=== PATIENT | male | born 1965 | race Caucasian/White ===

== ENCOUNTER 2016-05-02 13:12 | Inpatient (IN) | payer OTHER ==
[2016-05-02 14:11] VITALS: BMI 23.1
--- NOTE | 2016-05-02 15:04 | HP ---
Admission ROS [facility] Chief Complaint: i am here for rehab from heroin and xanax,last detox [facility] discharge today,asthma on albuterol inhaler nicotine dependence longest period sobriety 14 years Allergies/Adverse Reactions: Allergies Allergy/AdvReac Type Severity Reaction Status Date / Time aspirin Allergy Severe Difficulty Verified 01/13/15 16:53 Breathing macadamia nut oil Allergy Severe Verified 05/02/16 14:48 Penicillins Allergy Severe Difficulty Verified 01/13/15 16:53 Breathing History of Present Illness: this 50 yeras old male with heroin and xanax dependence for rehab as protocol Exam Limitations: No Limitations - Ebola screening Have you traveled outside of the country in the last 21 days: No Have you been sick,other than usual withdrawal symptoms: No Do you have a fever: No - Review of Systems Constitutional: No Symptoms Reported EENT: reports: No Symptoms Reported Respiratory: reports: No Symptoms reported, Other (asthma) Cardiac: reports: No Symptoms Reported GI: reports: No Symptoms Reported : reports: No Symptoms Reported Integumentary: reports: No Symptoms Reported Neuro: reports: No Symptoms reported Endocrine: reports: No Symptoms Reported Hematology: reports: No Symptoms Reported Psychiatric: reports: No Sypmtoms Reported Other Systems: Reviewed and Negative Patient History - Patient Medical History Hx Anemia: No Hx Asthma: Yes (Pt is on MDI for asthma.) Hx Chronic Obstructive Pulmonary Disease (COPD): Yes Hx Cancer: No Hx Cardiac Disorders: Yes (cardiac cath in 2006, 08/2015) Hx Congestive Heart Failure: No Hx Hypertension: Yes Hx Hypercholesterolemia: Yes Hx Pacemaker: No HX Cerebrovascular Accident: No Hx Seizures: Yes (blackouts ) Hx Dementia: No Hx Diabetes: No Hx Gastrointestinal Disorders: No Hx Liver Disease: No Hx Genitourinary Disorders: No Hx Sexually Transmitted Disorders: No Hx Renal Disease (ESRD): No Hx Thyroid Disease: No Hx Human Immunodeficiency Virus (HIV): No (2016 last negative) Hx Hepatitis C: Yes (not treated) Hx Depression: Yes (no med) Hx Suicide Attempt: No Hx Bipolar Disorder: No Hx Schizophrenia: No Other Medical History: no suicidal,no homicidal - Patient Surgical History Past Surgical History: Yes Hx Neurologic Surgery: No Hx Cataract Extraction: No Hx Cardiac Surgery: No Hx Lung Surgery: Yes (LEFT LUNG "REMOVED SOMETHING" empyema in 2001) Hx Breast Surgery: No Hx Breast Biopsy: No Hx Abdominal Surgery: No Hx Appendectomy: No Hx Cholecystectomy: No Hx Genitourinary Surgery: No Hx Orthopedic Surgery: Yes (R shoulder in 1992 xs R ankle sx 2009) Anesthesia Reaction: No - PPD History Previous Implant?: Yes Documented Results: Positive w/o proof PPD to be Administered?: No - Smoking Cessation Smoking history: Current every day smoker Have you smoked in the past 12 months: Yes Aproximately how many cigarettes per day: 20 Cigars Per Day: 0 Hx Chewing Tobacco Use: No Initiated information on smoking cessation: Yes 'Breaking Loose' booklet given: 05/02/16 - Substances Abused Alprazolam (Xanax) Route: Oral Frequency: Daily Amount used: 10 MG Age of first use: 28 Date of Last Use: 04/23/16 Alcohol Route: Oral Frequency: Daily Amount used: 1 PINT LIQUOR Age of first use: 16 Date of Last Use: 04/20/16 MORPHINE Route: Oral Frequency: Daily Amount used: 10 TABS Age of first use: 50 Date of Last Use: 04/23/16 Family Disease History - Family Disease History Family Disease History: Diabetes: Mother, Heart Disease: Father (pacemaker ), Brother (pacemaker ) Admission Physical Exam BHS - Vital Signs Vital Signs: Vital Signs - 24 hr 05/02/16 14:08 Temperature 98.5 F Pulse Rate 98 H Respiratory 20 Rate Blood Pressure 130/71 - Physical General Appearance: Yes: Within Normal Limits HEENTM: Yes: Within Normal Limits, TERRY, Pharynx Normal Respiratory: Yes: Lungs Clear, Surgical Scar (s/p left thoracotomy) Neck: Yes: Within Normal Limits, Supple, Trachea in good position Breast: Yes: Within Normal Limits Cardiology: Yes: Within Normal Limits, Regular Rhythm, Regular Rate, S1, S2 Abdominal: Yes: Within Normal Limits, Normal Bowel Sounds, Non Tender, Flat, Soft Genitourinary: Yes: Within Normal Limits Back: Yes: Within Normal Limits Musculoskeletal: Yes: Back pain, Muscle Pain Extremities: Yes: Within Normal Limits, Normal Range of Motion Neurological: Yes: computer engineering technologist II-XII NML intact, Fully Oriented, Alert, Motor Strength 5/5 Integumentary: Yes: Within Normal Limits - Diagnostic (1) Opioid dependence Current Visit: Yes Status: Acute (2) Uncomplicated sedative, hypnotic or anxiolytic withdrawal Current Visit: Yes Status: Acute (3) Alcohol dependence Current Visit: Yes Status: Acute (4) CAD (coronary artery disease) Current Visit: No Status: Chronic (5) Hep C w/o coma, chronic Current Visit: No Status: Chronic (6) Nicotine dependence Current Visit: No Status: Chronic Qualifiers: Nicotine product type: cigarettes Substance use status: uncomplicated Qualified Code(s): F17.210 - Nicotine dependence, cigarettes, uncomplicated Comment: RISKS OF CIGARETTE SMOKING RELATED HEALTH JESSIE PROVIDED (7) Strabismic amblyopia of right eye Current Visit: No Status: Chronic (8) Empyema lung Current Visit: Yes Status: Acute (9) Dislocation of right shoulder joint Current Visit: Yes Status: Acute Cleared for Admission S - Detox or Rehab Claeared for Rehab Admission: Yes [facility] Breath Alcohol Content Breath Alcohol Content: 0 Urine Drug Screen - Results Drug Screen Negative: No Urine Drug Screen Results: OPI-Opiates, BZO-Benzodiazepines, TCA-Tricyclic Antidepress
[2016-05-02] MEDS ORDERED: P-EPHED 60MG/TRIPROLIDI 2.5MG TABLET PO PRN (15:22)
[2016-05-02] MEDS ORDERED: MAGNESIUM HYDROX 2400MG/30ML ORAL SUSPENSION 30 ML CUP PO PRN (15:22)
[2016-05-02] MEDS ORDERED: MAG HYDROX/AL HYDROX/SIMETH 30 ML UNIT-DOSE CUP PO PRN (15:22)
[2016-05-02] MEDS ORDERED: MENTHOL/PHENOL 1 EACH UD MM PRN (15:22)
[2016-05-02] MEDS ORDERED: guaiFENesin/D-METHORPHAN HB 10 ML UNIT-DOSE CUPS PO PRN (15:22)
[2016-05-02] MEDS ORDERED: IBUPROFEN 400 MG TABLET (FP) PO PRN (15:22)
[2016-05-02] MEDS ORDERED: MAGNESIUM CITRATE 300 ML BOTTLE PO PRN (15:22)
[2016-05-02] MEDS ORDERED: LOPERAMIDE HCL 2 MG CAPSULE PO PRN (15:22)
[2016-05-02] MEDS ORDERED: ACETAMINOPHEN 325 MG TABLET (FP) PO PRN (15:22)
[2016-05-02] MEDS ORDERED: ALBUTEROL SO4 6.7 GM HFA INHALER IH PRN (15:57)
[2016-05-02] MEDS: hydrOXYzine PAMOATE 50 MG CAPSULE (FP) PO PRN (19:11)
[2016-05-02] MEDS: NICOTINE 21 MG/24 HOURS TOPICAL PATCH TD SCH (19:12)
[2016-05-02] MEDS: NICOTINE POLACRILEX 2 MG GUM BC PRN (19:13)
[2016-05-02 20:38] LABS: URINE APPEARANCE CLEAR; URINE BILIRUBIN NEGATIVE (NEGATIVE); URINE BLOOD NEGATIVE (NEGATIVE); URINE COLOR YELLOW; URINE GLUCOSE (UA) NEGATIVE (NEGATIVE); URINE KETONE NEGATIVE (NEGATIVE); URINE LEUK ESTERASE NEGATIVE (NEGATIVE); URINE NITRITE NEGATIVE (NEGATIVE); URINE PROTEIN NEGATIVE (NEGATIVE); URINE UROBILINOGEN 2.0 E.U/dl E.U./dl (0.2-1.0)
[2016-05-02] MEDS: CYCLOBENZAPRINE HCL 10 MG TABLET (FP) PO PRN (21:10)
[2016-05-02] MEDS: cloNIDine HCL 0.1 MG TABLET PO SCH (21:10)
[2016-05-02] MEDS: diphenhydrAMINE HCL 50 MG CAPSULE PO PRN (21:10)
[2016-05-02] MEDS: THIAMINE HCL 100 MG TABLET (FP) PO SCH (21:10)
--- NOTE | 2016-05-03 08:21 | HP ---
Psychiatrist Admission - Data Date of interview: 05/03/16 Admission source: [facility]( discharged today from detox) Identifying data: This is the first [facility] admission for this 50 years old male, father of 3 children, unemployed, homeless seeking rehab treatment for morphine and xanax Medical History: Significant for history of Asthma, CAD, HTN, Hyperlipidemia Benzodiazepine-related seizure, Hep C, Orthosurgery for right shoulder dislocation in 1992 & fracture right ankle in 2009 and surgery for partial removal for of left lung due to empyema in 2001 Physical/Sexual Abuse/Trauma History: Denies history of emotional, physical and sexual abuse as well as DV relationship Additional Comment: Reports history of one previous misdemeanor arrest. Denies being on probation at present Vital Signs: Vital Signs - 24 hr 05/02/16 05/02/16 05/03/16 14:08 20:26 03:30 Temperature 98.5 F Pulse Rate 98 H 78 Respiratory 20 18 Rate Blood Pressure 130/71 111/74 05/03/16 06:46 Temperature 97.6 F Pulse Rate 78 Respiratory 18 Rate Blood Pressure 94/56 Allergies/Adverse Reactions: Allergies Allergy/AdvReac Type Severity Reaction Status Date / Time aspirin Allergy Severe Difficulty Verified 01/13/15 16:53 Breathing macadamia nut oil Allergy Severe Verified 05/02/16 14:48 Penicillins Allergy Severe Difficulty Verified 01/13/15 16:53 Breathing Date of last physical exam: 05/02/16 Concur with the findings of this exam: Yes - Substance Abuse/Tx History Hx Alcohol Use: No Hx Substance Use: Yes Substance Use Type: Opiates (Started using morphine at age 50, consumes 10 tabs daily. Last used on 04/23/16), Tranquilizers (Started using xanax at age 28, consumes 10 mg daily. Last used on 04/23/16) Hx Substance Use Treatment: Yes (6 previous inpt detox including one @ [facility]. First inpt rehab) - Admission Criteria Previous failed treatment: No Poor recovery environment: Yes Comorbidities: Yes Lacks judgement: Yes Mental Status Exam - Mental Status Exam Alert and Oriented to: Time, Place, Person Cognitive Function: Fair Patient Appearance: Well Groomed Mood: Depressed, Anxious Affect: Appropriate Patient Behavior: Cooperative Speech Pattern: Clear Voice Loudness: Normal Thought Process: Intact Thought Disorder: Not Present Hallucinations: Denies Suicidal Ideation: Denies Homicidal Ideation: Denies Insight/Judgement: Fair Sleep: Poorly Appetite: Fair Muscle strength/Tone: Normal Gait/Station: Normal Psychiatric Findings - Problem List ([place] 1, 2,3) (1) Opioid dependence Current Visit: Yes Status: Acute (2) Sedative hypnotic or anxiolytic dependence Current Visit: Yes Status: Acute (3) Nicotine dependence Current Visit: No Status: Chronic Qualifiers: Nicotine product type: cigarettes Substance use status: uncomplicated Qualified Code(s): F17.210 - Nicotine dependence, cigarettes, uncomplicated Comment: RISKS OF CIGARETTE SMOKING RELATED HEALTH JESSIE PROVIDED (4) Major depressive disorder, single episode in full remission Current Visit: Yes Status: Acute (5) Dislocation of right shoulder joint Current Visit: Yes Status: Acute (6) Empyema lung Current Visit: Yes Status: Acute (7) Asthma Current Visit: No Status: Chronic Qualifiers: Asthma severity: mild persistent Asthma complication type: with status asthmaticus Qualified Code(s): J45.32 - Mild persistent asthma with status asthmaticus (8) CAD (coronary artery disease) Current Visit: No Status: Chronic (9) COPD (chronic obstructive pulmonary disease) Current Visit: No Status: Chronic Qualifiers: COPD type: emphysema Emphysema type: panlobular Qualified Code(s ): J43.1 - Panlobular emphysema (10) Hep C w/o coma, chronic Current Visit: No Status: Chronic (11) Hypertension Current Visit: No Status: Chronic Qualifiers: Hypertension type: essential hypertension Qualified Code(s): I10 - Essential (primary) hypertension Comment: BP 107/69 UPON ADMISSION, LAST DOSE METOPROLOL 50 MG "FEW DAYS AGO", HOLD METOPROLOL, MONITOR BP (12) Strabismic amblyopia of right eye Current Visit: No Status: Chronic - Initial Treatment Plan Initial Treatment Plan: Monitor progress
[2016-05-03] MEDS: NICOTINE 21 MG/24 HOURS TOPICAL PATCH TD SCH (09:46)
[2016-05-03] MEDS: NICOTINE POLACRILEX 2 MG GUM BC PRN (09:46)
[2016-05-03] MEDS: cloNIDine HCL 0.1 MG TABLET PO SCH (09:46)
[2016-05-03] MEDS: CYCLOBENZAPRINE HCL 10 MG TABLET (FP) PO PRN ×2 (09:47→21:31)
[2016-05-03 09:58] LABS: MCH 27.2 pg (25.7-33.7); MCHC 31.7 g/dl (32.0-35.9); MEAN CELL VOLUME 85.8 fl (80-96); MEAN PLT VOLUME 9.9 fl (7.5-11.1); PLATELET COUNT 270 K/MM3 (134-434); RDW 14.5 % (11.9-15.9); WHITE BLOOD COUNT 6.3 K/mm3 (4.0-10.0)
[2016-05-03] MEDS ORDERED: PRENATAL VITAMINS W/ FOLIC ACID TABLET (FP) PO SCH (10:00)
[2016-05-03 11:20] LABS: ALBUMIN 4.4 g/dl (3.4-5.0); ALK PHOS 140 U/L (45-117); ANION GAP 10 (8-16); BILIRUBIN,TOTAL 0.4 mg/dL (0.2-1.0); CALCIUM 9.6 mg/dL (8.5-10.1); CO2 27 mmol/L (21-32); GLUCOSE,RANDOM 130 mg/dL (74-106); SGOT/AST 47 U/L (15-37); SGPT/ALT 66 U/L (12-78); TOT PROT 8.8 g/dl (6.4-8.2)
[2016-05-03 11:53] LABS: HIV 1 & 2 AB NEGATIVE; HIV 1 AGp24 NEGATIVE
[2016-05-03] MEDS: hydrOXYzine PAMOATE 50 MG CAPSULE (FP) PO PRN (14:46)
--- NOTE | 2016-05-03 17:17 | EKG ---
Test Reason : Blood Pressure : / mmHG Vent. Rate : 059 BPM Atrial Rate : 059 BPM P-R Int : 150 ms QRS Dur : 098 ms QT Int : 434 ms P-R-T Axes : 068 056 051 degrees QTc Int : 429 ms SINUS BRADYCARDIA POSSIBLE LEFT ATRIAL ENLARGEMENT ANTEROSEPTAL INFARCT , AGE UNDETERMINED ABNORMAL ECG NO PREVIOUS ECGS AVAILABLE Confirmed by CARROL REED MD ([id number]) on 05/03/2016 5:16:59 PM Referred By: Confirmed By:CARROL REED MD
[2016-05-03] MEDS: THIAMINE HCL 100 MG TABLET (FP) PO SCH (21:31)
[2016-05-03] MEDS: diphenhydrAMINE HCL 50 MG CAPSULE PO PRN (21:31)
[2016-05-04 06:59] VITALS: BP 99/57; PULSE 78; TEMP 97.7
--- NOTE | 2016-05-04 09:11 | PN ---
Psychiatric Progress Note Vital Signs: Vital Signs Period Temp Pulse Resp BP Sys/Arthur Pulse Ox Last 24 Hr 97.7 F 78 16-18 99/57 Date of Session: 05/04/16 Chief Complaint:: Psychiatrist Discharge Note(AMA) HPI: Patient addressing Opoid and Sedative Dependence comorbid with Nicotine Dependence and MDD, single episode in full remission ROS: Asthma/COPD, HTN, CAD, Stabismic amblyopia of right eye, dislocation of right shoulder joint Current Medications: Active Medications Generic Name Dose Route Start Last Admin Trade Name Freq PRN Reason Stop Dose Admin Acetaminophen 650 mg 05/02/16 15:22 Tylenol - PO Q4H PRN PAIN Al Hydroxide/Mg Hydroxide 30 ml 05/02/16 15:22 Mylanta Oral Suspension - PO Q6H PRN DYSPEPSIA Albuterol Sulfate 2 puff 05/02/16 15:57 Ventolin Hfa Inhaler - IH Q4H PRN SHORT OF BREATH/WHEEZING Cyclobenzaprine HCl 10 mg 05/02/16 15:26 05/03/16 21:31 Flexeril - PO 10 mg TID PRN Administration MUSCLE SPASMS Diphenhydramine HCl 50 mg 05/02/16 15:22 05/03/16 21:31 Benadryl - PO 50 mg HSMR1 PRN Administration INSOMNIA Eucalyptus/Menthol/Phenol/Sorbitol 1 each 05/02/16 15:22 Cepastat Lozenge - MM Q4H PRN SORE THROAT Guaifenesin 10 ml 05/02/16 15:22 Robitussin Dm - PO Q6H PRN COUGH Hydroxyzine Pamoate 50 mg 05/02/16 15:22 05/03/16 14:46 Vistaril - PO 50 mg Q4H PRN Administration AGITATION Ibuprofen 400 mg 05/02/16 15:22 05/02/16 19:11 Motrin - PO 400 mg Q6H PRN Administration SEVERE PAIN Loperamide HCl 4 mg 05/02/16 15:22 Imodium - PO Q6H PRN DIARRHEA Magnesium Citrate 300 ml 05/02/16 15:22 Citroma - PO Q48H PRN CONSTIPATION Magnesium Hydroxide 30 ml 05/02/16 15:22 Milk Of Magnesia - PO DAILY PRN CONSTIPATION Nicotine 21 mg 05/02/16 16:00 05/03/16 09:46 Nicoderm Patch - TD 21 mg DAILY GRICELDA Administration Nicotine Polacrilex 2 mg 05/02/16 15:22 05/03/16 09:46 Nicorette Gum - BC 2 mg Q2H PRN Administration NICOTINE REPLACEMENT RX Multivit/Folic Acid/Iron 1 tab 05/03/16 10:00 05/03/16 09:46 Vitamins (Sjr) - PO 1 tab DAILY GRICELDA Administration Pseudoephedrine/Triprolidine 1 combo 05/02/16 15:22 Actifed - PO TID PRN NASAL CONGESTION Thiamine HCl 100 mg 05/02/16 22:00 05/03/16 21:31 Vitamin B1 - PO Not Given HS GRICELDA Current Side Effect: No Lab tests ordered: Yes Lab tests reviewed: Yes Provider note:: Patient wants to sign out against medical advice. During the interview, he was very angry and told grant writer "I just want to leave and go somewhere else." when asked why he wants to go somewhere else, he answered " When I wanted to see a doctor I could not see one, Now that I asked to leave, they wants to see me." He then angrily got up the chair and walked out of the office. Total face to face time:: 25 Mental Status Exam - Mental Status Exam Alert and Oriented to: Time, Place, Person Cognitive Function: Fair Patient Appearance: Well Groomed Mood: Angry Affect: Appropriate Patient Behavior: Uncooperative Speech Pattern: Clear, Artificially Ventilated Thought Process: Intact Thought Disorder: Not Present Hallucinations: Denies Suicidal Ideation: Denies Homicidal Ideation: Denies Insight/Judgement: Poor Sleep: Fair Appetite: Good Muscle strength/Tone: Normal Gait/Station: Normal Psychiatric Treatment Plan - Problem List (1) Opioid dependence Current Visit: Yes (2) Sedative hypnotic or anxiolytic dependence Current Visit: Yes (3) Nicotine dependence Current Visit: No Qualifiers: Nicotine product type: cigarettes Substance use status: uncomplicated Qualified Code(s): F17.210 - Nicotine dependence, cigarettes, uncomplicated Comment: RISKS OF CIGARETTE SMOKING RELATED HEALTH JESSIE PROVIDED (4) Major depressive disorder, single episode in full remission Current Visit: Yes (5) Dislocation of right shoulder joint Current Visit: Yes (6) Empyema lung Current Visit: Yes (7) Asthma Current Visit: No Qualifiers: Asthma severity: mild persistent Asthma complication type: with status asthmaticus Qualified Code(s): J45.32 - Mild persistent asthma with status asthmaticus (8) CAD (coronary artery disease) Current Visit: No (9) COPD (chronic obstructive pulmonary disease) Current Visit: No Qualifiers: COPD type: emphysema Emphysema type: panlobular Qualified Code(s ): J43.1 - Panlobular emphysema (10) Hep C w/o coma, chronic Current Visit: No (11) Hypertension Current Visit: No Qualifiers: Hypertension type: essential hypertension Qualified Code(s): I10 - Essential (primary) hypertension Comment: BP 107/69 UPON ADMISSION, LAST DOSE METOPROLOL 50 MG "FEW DAYS AGO", HOLD METOPROLOL, MONITOR BP (12) Strabismic amblyopia of right eye Current Visit: No Initial treatment plan: Patient is leaving against medical advice
== END 2016-05-04 09:00 | disposition left against medical advice (07) | DRG 770 ==
LOC: YASAS 13:12 → Y3W 15:45
PROVIDERS: ADMIT Psychiatry & Neurology Psychiatry; ATTEND Psychiatry & Neurology Psychiatry
PROC: HZ42ZZZ Group Counseling for Substance Abuse Treatment, Cognitive-Behavioral (ICD-10-PCS; principal; 2016-05-04)
DX: F11.20 Opioid dependence, uncomplicated (principal); F13.20 Sedative, hypnotic or anxiolytic dependence, uncomplicated; F17.210 Nicotine dependence, cigarettes, uncomplicated; F33.9 Major depressive disorder, recurrent, unspecified; J45.32 Mild persistent asthma with status asthmaticus; I10 Essential (primary) hypertension; B18.2 Chronic viral hepatitis C; J86.9 Pyothorax without fistula
CPT/HCPCS: 36415; 71020-TC; 80053; 81003; 85027; 86593; 87389; 93005; 93010